=== PATIENT | female | born 1965 | race Caucasian/White ===

== ENCOUNTER 2018-11-15 10:03 | Outpatient (CLI) | payer BC ==
--- NOTE | 2018-11-15 12:48 | MRI ---
MRI CERVICAL SPINE PERFORMED WITHOUT CONTRAST ENHANCEMENT: History: Left shoulder and scapular pain. History of previous surgery. FINDINGS: The patient has undergone an anterior cervical fusion. The fusion extends from C4 to C6. The vertebra l bodies maintain normal height. Cord signal change is normal. C2-3: There is a central disc protrusion at this level, however, it only minimally indents the anteri or margin of the cord. It is not associated with any canal stenosis and no foraminal narrowing. C3-4: There are some degenerative facet changes but no canal or foraminal stenosis. C4-5: No significant canal or foraminal stenosis at this level. C5-6: The canal is mildly stenotic. There is some posterior osteophyte change at this level. There is a more broad based osteophytic bar. There is also mild to moderate bilateral foraminal narrowing. C6-7: There are asymmetric left uncal vertebral hypertrophic changes at this level with fairly pronou nced left sided foraminal narrowing. The canal shows only mild stenosis. C7-T1: Unremarkable. IMPRESSION: 1. 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 2. Mild to moderate canal stenosis at C5-6 with a broad based osteophytic bar and mild to moderate bi lateral foraminal narrowing. 3. Central disc protrusion at C2-3 only minimally indenting the cord at this level. POS: [facility]
== END 2018-11-15 10:04 | disposition home or self-care (01) ==
LOC: SCSMRI 10:03
PROVIDERS: ATTEND Family Medicine
DX: M50.11 Cervical disc disorder with radiculopathy, high cervical region (principal); M48.02 Spinal stenosis, cervical region; M25.78 Osteophyte, vertebrae
CPT/HCPCS: 72141

== ENCOUNTER 2019-08-20 16:02 | Outpatient (CLI) | payer BC ==
--- NOTE | 2019-08-20 16:29 | MMO ---
Bilateral MAMMO Bilat Screen [facility]. CLINICAL HISTORY: Patient is 54 years old and is seen for screening. The patient has the following family history of breast cancer: mother, at age 65. The patient has no personal history of cancer. VIEWS: The views performed were: bilateral craniocaudal with tomosynthesis and bilateral mediolateral oblique with tomosynthesis. FILMS COMPARED: The present examination has been compared to prior imaging studies performed at [facility] on 09/01/2014, 03/17/2016, 09/08/2016 and 03/29/2017. This study has been interpreted with the assistance of computer-aided detection. MAMMOGRAM FINDINGS: The breasts are extremely dense, which may lower the sensitivity of mammography. There are stable benign appearing calcifications seen in both breasts. There are no suspicious masses, suspicious calcifications, or new areas of architectural distortion. IMPRESSION: THERE IS NO MAMMOGRAPHIC EVIDENCE OF MALIGNANCY. A ROUTINE FOLLOW-UP MAMMOGRAM IN 1 YEAR IS RECOMMENDED. THE RESULTS OF THIS EXAM WERE SENT TO THE PATIENT. ACR BI-RADS Category 2 - Benign finding MAMMOGRAPHY NOTE: 1. A negative mammogram report should not delay a biopsy if a dominant of clinically suspicious mass is present. 2. Approximately 10% to 15% of breast cancers are not detected by mammography. 3. Adenosis and dense breasts may obscure an underlying neoplasm. Reported by: MYRON GONZALEZ MD Electonically Signed: [id number]
== END 2019-08-20 16:03 | disposition home or self-care (01) ==
LOC: BICMAMMO 16:02
PROVIDERS: ATTEND Family Medicine
DX: Z12.31 Encounter for screening mammogram for malignant neoplasm of breast (principal); Z80.3 Family history of malignant neoplasm of breast
CPT/HCPCS: 77063; 77067